=== PATIENT | female | born 1995 | race Two or more races ===

== ENCOUNTER 2024-05-06 17:19 | Emergency (ER) | payer MEDICAID, OTHER ==
[~2024-05-06] VITALS: Ht 165.1 cm; Wt 77.8 kg
[2024-05-06 18:18] VITALS: BP 116/73; PULSE 88; RESP 18; TEMP 98.5; O2SAT 99
[2024-05-06] MEDS ORDERED: IBUP-1455 PO (20:17)
[2024-05-06] MEDS ORDERED: CYCL-837 PO (20:17)
[2024-05-06] MEDS: IBUPROFEN 800 MG TAB PO ONE (20:44)
== END 2024-05-06 20:49 | disposition home or self-care (01) ==
LOC: ER 17:19
DX: M79.18 Myalgia, other site (principal); V43.52XA Car driver injured in collision with other type car in traffic accident, initial encounter; Y93.89 Activity, other specified; Y92.488 Other paved roadways as the place of occurrence of the external cause; Y99.8 Other external cause status